=== PATIENT | male | born 1995 | race Hispanic/Latino ===

== ENCOUNTER 2019-12-26 01:38 | Emergency (ER) | payer OTHER ==
[2019-12-26] MEDS ORDERED: IBUPROFEN 400 MG TAB ONE (03:07)
--- NOTE | 2019-12-26 05:13 | ER ---
Nurse's Notes [facility] Name: Tyrone Zhou Jr Age: 24 yrs Sex: Male : 1995 Arrival Date: 12/26/2019 Time: 01:38 Bed 26 Private MD: Diagnosis: Concussion without loss of consciousness;Contusion of unspecified part of head Presentation: 12/25 01:53 Chief complaint: Parent and/or Guardian states: He was in the shower and fell. He hit jb4 his head, neck, left arm and hip. Coronavirus screen: Proceed with normal triage. Ebola Screen: No symptoms or risks identified at this time. Initial Sepsis Screen: Does the patient meet any 2 criteria? HR > 90 bpm. Yes Does the patient have a suspected source of infection? No. Patient's initial sepsis screen is negative. Risk Assessment: Do you want to hurt yourself or someone else? Patient reports no desire to harm self or others. Onset of symptoms was December 26, 2019. Transition of care: patient was not received from another setting of care. 01:53 Method Of Arrival: Ambulatory jb4 01:53 Acuity: CISCO 2 jb4 02:00 Care prior to arrival: None. Mechanism of Injury: Fall from standing position. Trauma jb4 event details: Injury occurred in the [facility]. Triage Assessment: 02:00 General: Appears in no apparent distress. comfortable, Behavior is calm, cooperative, jb4 appropriate for age. Pain: Complains of pain in base of the skull, left arm and left hip Pain does not radiate. Pain currently is 8 out of 10 on a pain scale. Quality of pain is described as throbbing. EENT: No signs and/or symptoms were reported regarding the EENT system. Neuro: Level of Consciousness is awake, alert, obeys commands, Oriented to person, place, time, situation. Cardiovascular: Patient's skin is warm and dry. Respiratory: Airway is patent Respiratory effort is even, unlabored, Respiratory pattern is regular, symmetrical. GI: No signs and/or symptoms were reported involving the gastrointestinal system. : No signs and/or symptoms were reported regarding the genitourinary system. Derm: Skin is intact, Skin is pink, warm \T\ dry. Musculoskeletal: Circulation, motion, and sensation intact. Range of motion: intact in all extremities. Trauma Activation: Alert Physician: ED Physician; Name: Noemy; Notified At: 02:00; Arrived At: 02:00 Physician: General Surgeon; Name: ; Notified At: 02:00; Arrived At: Physician: Radiology; Name: Vidal; Notified At: 02:00; Arrived At: 02:00 Physician: Respiratory; Name: ; Notified At: 02:00; Arrived At: Physician: Lab; Name: ; Notified At: 02:00; Arrived At: Historical: - Allergies: 01:55 Vancomycin; jb4 - Home Meds: 01:55 testosterone transdermal transdermal [Active]; Synthroid 137 mcg Oral tab 1 tab once jb4 daily [Active]; metformin 1,000 mg Oral tab 1 tab 2 times per day [Active]; enalapril maleate 20 mg Oral tab 1 tab 2 times per day [Active]; pioglitazone 15 mg oral tab [Active]; - PMHx: 01:55 MR; Diabetes - IDDM; fatty liver; Hypothyroidism; Low testosterone; Leukemia; jb4 - PSHx: 01:55 liver biopsy; Bone Marrow Transplant; jb4 - Immunization history:: Adult Immunizations up to date. - Social history:: Smoking status: Patient denies any tobacco usage or history of. Patient/guardian denies using alcohol, street drugs. - Immunization history: Last tetanus immunization: - up to date. Screenin:00 Abuse screen: Denies threats or abuse. Nutritional screening: No deficits noted. jb4 Tuberculosis screening: No symptoms or risk factors identified. Fall Risk None identified. Primary Survey: 02:00 NO uncontrolled hemorrhage observed. A: The patient is alert. Airway: patent, No jb4 supplemental oxygen in use on arrival. Breathing/Chest: Respiratory pattern: regular, Respiratory effort: spontaneous, unlabored, Chest inspection: symmetrical rise and fall of the chest. Circulation: Skin color: pink, Skin temperature: warm, dry. Disability Alert. Exposure/Environment: All clothing and personal items were removed. Forensic evidence collection is not deemed to be indicated at this time. Items placed in patient belonging bag. A warming method has been applied: A warm blanket has been provided to the patient. 03:00 Reassessment Airway Airway Patent Oxygen No O2 Breathing/Chest Respiratory pattern jb4 Regular Respiratory effort Spontaneous Unlabored Chest inspection Symmetrical Circulation Color [place] Temperature Warm Dry Disability Alert. Secondary Survey: 02:00 HEENT: No deficits noted. Gastrointestinal: No deficits noted. : No signs and/or jb4 symptoms were reported regarding the genitourinary system. Musculoskeletal: Circulation, motion, and sensation intact. Range of motion: intact in all extremities. Assessment: 03:00 Reassessment: Patient appears in no apparent distress at this time. Patient and/or jb4 family updated on plan of care and expected duration. Pain level reassessed. Patient is alert, oriented x 3, equal unlabored respirations, skin warm/dry/pink. 04:00 Reassessment: Patient appears in no apparent distress at this time. Patient and/or jb4 family updated on plan of care and expected duration. Pain level reassessed. Patient is alert, oriented x 3, equal unlabored respirations, skin warm/dry/pink. 05:00 Reassessment: Patient appears in no apparent distress at this time. Patient and/or jb4 family updated on plan of care and expected duration. Pain level reassessed. Patient is alert, oriented x 3, equal unlabored respirations, skin warm/dry/pink. 05:40 Reassessment: Patient appears in no apparent distress at this time. Patient and/or jb4 family updated on plan of care and expected duration. Pain level reassessed. Patient is alert, oriented x 3, equal unlabored respirations, skin warm/dry/pink. Pt and mother verbalized understanding of d/c and follow up instructions. Denies questions or concerns. Pt ambulated out of ED with mother with steady gait. Patient states feeling better. Vital Signs: 01:53 BP 119 / 77; Pulse 93; Resp 16; Temp 97.6(O); Pulse Ox 100% on R/A; Weight 63.5 kg (R); jb4 Height 5 ft. 8 in. (172.72 cm) (R); Pain 8/10; 03:00 BP 107 / 68; Pulse 96; Resp 16; Pulse Ox 100% on R/A; jb4 04:00 BP 122 / 76; Pulse 102; Resp 16; Pulse Ox 100% on R/A; jb4 05:00 BP 112 / 68; Pulse 91; Resp 16; Pulse Ox 99% on R/A; jb4 01:53 Body Mass Index 21.29 (63.50 kg, 172.72 cm) jb4 [place] Coma Score: 02:00 Eye Response: spontaneous(4). Verbal Response: oriented(5). Motor Response: obeys jb4 commands(6). Total: 15. 03:00 Eye Response: spontaneous(4). Verbal Response: oriented(5). Motor Response: obeys jb4 commands(6). Total: 15. 04:00 Eye Response: spontaneous(4). Verbal Response: oriented(5). Motor Response: obeys jb4 commands(6). Total: 15. 05:00 Eye Response: spontaneous(4). Verbal Response: oriented(5). Motor Response: obeys jb4 commands(6). Total: 15. Trauma Score (Adult): 02:00 Eye Response: spontaneous(1); Verbal Response: oriented(1); Motor Response: obeys jb4 commands(2); Systolic BP: > 89 mm Hg(4); Respiratory Rate: 10 to 29 per min(4); Maria D Score: 15; Trauma Score: 12 03:00 Eye Response: spontaneous(1); Verbal Response: oriented(1); Motor Response: obeys jb4 commands(2); Systolic BP: > 89 mm Hg(4); Respiratory Rate: 10 to 29 per min(4); [place] Score: 15; Trauma Score: 12 04:00 Eye Response: spontaneous(1); Verbal Response: oriented(1); Motor Response: obeys jb4 commands(2); Systolic BP: > 89 mm Hg(4); Respiratory Rate: 10 to 29 per min(4); [place] Score: 15; Trauma Score: 12 05:00 Eye Response: spontaneous(1); Verbal Response: oriented(1); Motor Response: obeys jb4 commands(2); Systolic BP: > 89 mm Hg(4); Respiratory Rate: 10 to 29 per min(4); Maria D Score: 15; Trauma Score: 12 ED Course: 01:38 Patient arrived in ED. ds1 01:44 Sebastian Desouza, RN is Primary Nurse. jb4 01:55 Arm band placed on right wrist. jb4 01:58 Triage completed. jb4 02:00 Patient has correct armband on for positive identification. Placed in gown. Bed in low jb4 position. Call light in reach. Side rails up X 1. Pulse ox on. NIBP on. 02:00 Patient maintains SpO2 saturation greater than 95% on room air. Thermoregulation: warm jb4 blanket given to patient. 02:01 Marck Salguero MD is Attending Physician. tw4 03:26 CT Head C Spine In Process Unspecified. EDID 05:40 No provider procedures requiring assistance completed. Patient did not have IV access jb4 during this emergency room visit. Administered Medications: 03:04 Drug: Motrin 800 mg Route: PO; jb4 Intake: 05:40 PO: 0ml; Total: 0ml. jb4 Output: 05:40 Urine: 0ml; Total: 0ml. jb4 Outcome: 05:12 Discharge ordered by . tw4 05:12 Patient's length of stay in the Emergency Department was greater than 2 hours. D/c jb4 Pending test results.Patient's length of stay extended due to 05:40 Patient left the ED. jb4 05:40 Discharged to home ambulatory, with family. jb4 05:40 Condition: stable 05:40 Discharge instructions given to patient, family, Instructed on discharge instructions, follow up and referral plans. Demonstrated understanding of instructions, follow-up care. Signatures: Dispatcher [employer] [facility] GarzaFlaquita beaver ds1 Sebastian Desouza, RN RN jb4 Marck Salguero MD MD tw4
--- NOTE | 2019-12-26 05:13 | EDPHYS ---
Physician Documentation [facility] Name: Tyrone Zhou Jr Age: 24 yrs Sex: Male : 1995 Arrival Date: 12/26/2019 Time: 01:38 Bed 26 Private MD: ED Physician Marck Salguero HPI: 12/25 05:12 This 24 yrs old Male presents to ER via Ambulatory with complaints of Fall tw4 Injury. 05:12 Details of fall: The patient fell from an upright position, while standing. Onset: The tw4 symptoms/episode began/occurred today. Associated injuries: The patient sustained injury to the head. Severity of symptoms: At their worst the symptoms were moderate, in the emergency department the symptoms are unchanged. The patient has not experienced similar symptoms in the past. Historical: - Allergies: 01:55 Vancomycin; jb4 - Home Meds: 01:55 testosterone transdermal transdermal [Active]; Synthroid 137 mcg Oral tab 1 tab once jb4 daily [Active]; metformin 1,000 mg Oral tab 1 tab 2 times per day [Active]; enalapril maleate 20 mg Oral tab 1 tab 2 times per day [Active]; pioglitazone 15 mg oral tab [Active]; - PMHx: 01:55 MR; Diabetes - IDDM; fatty liver; Hypothyroidism; Low testosterone; Leukemia; jb4 - PSHx: :55 liver biopsy; Bone Marrow Transplant; jb4 - Immunization history:: Adult Immunizations up to date. - Social history:: Smoking status: Patient denies any tobacco usage or history of. Patient/guardian denies using alcohol, street drugs. - Immunization history: Last tetanus immunization: - up to date. ROS: 05:12 Constitutional: Negative for fever, chills, and weight loss, Eyes: Negative for injury, tw4 pain, redness, and discharge, Cardiovascular: Negative for chest pain, palpitations, and edema, Respiratory: Negative for shortness of breath, cough, wheezing, and pleuritic chest pain, Abdomen/GI: Negative for abdominal pain, nausea, vomiting, diarrhea, and constipation, Back: Negative for injury and pain. Vital Signs: 01:53 BP 119 / 77; Pulse 93; Resp 16; Temp 97.6(O); Pulse Ox 100% on R/A; Weight 63.5 kg (R); jb4 Height 5 ft. 8 in. (172.72 cm) (R); Pain 8/10; 03:00 BP 107 / 68; Pulse 96; Resp 16; Pulse Ox 100% on R/A; jb4 04:00 BP 122 / 76; Pulse 102; Resp 16; Pulse Ox 100% on R/A; jb4 05:00 BP 112 / 68; Pulse 91; Resp 16; Pulse Ox 99% on R/A; jb4 01:53 Body Mass Index 21.29 (63.50 kg, 172.72 cm) jb4 [place] Coma Score: 02:00 Eye Response: spontaneous(4). Verbal Response: oriented(5). Motor Response: obeys jb4 commands(6). Total: 15. 03:00 Eye Response: spontaneous(4). Verbal Response: oriented(5). Motor Response: obeys jb4 commands(6). Total: 15. 04:00 Eye Response: spontaneous(4). Verbal Response: oriented(5). Motor Response: obeys jb4 commands(6). Total: 15. 05:00 Eye Response: spontaneous(4). Verbal Response: oriented(5). Motor Response: obeys jb4 commands(6). Total: 15. Trauma Score (Adult): 02:00 Eye Response: spontaneous(1); Verbal Response: oriented(1); Motor Response: obeys jb4 commands(2); Systolic BP: > 89 mm Hg(4); Respiratory Rate: 10 to 29 per min(4); [place] Score: 15; Trauma Score: 12 03:00 Eye Response: spontaneous(1); Verbal Response: oriented(1); Motor Response: obeys jb4 commands(2); Systolic BP: > 89 mm Hg(4); Respiratory Rate: 10 to 29 per min(4); [place] Score: 15; Trauma Score: 12 04:00 Eye Response: spontaneous(1); Verbal Response: oriented(1); Motor Response: obeys jb4 commands(2); Systolic BP: > 89 mm Hg(4); Respiratory Rate: 10 to 29 per min(4); Maria D Score: 15; Trauma Score: 12 05:00 Eye Response: spontaneous(1); Verbal Response: oriented(1); Motor Response: obeys jb4 commands(2); Systolic BP: > 89 mm Hg(4); Respiratory Rate: 10 to 29 per min(4); [place] Score: 15; Trauma Score: 12 MDM: 02:01 Patient medically screened. tw4 12/25 01:57 Order name: CT Head C Spine jmm Administered Medications: 03:04 Drug: Motrin 800 mg Route: PO; jb4 Disposition: 12/26/19 05:12 Discharged to Home. Impression: Concussion without loss of consciousness, Contusion of unspecified part of head. - Condition is Stable. - Discharge Instructions: Contusion, Head Injury, Adult, [id number]. - Medication Reconciliation Form, Thank You Letter, Antibiotic Education, Prescription Opioid Use form. - Follow up: Private Physician; When: Upon discharge from the Emergency Department; Reason: Recheck today's complaints, Continuance of care, Re-evaluation by your physician. - Problem is new. - Symptoms have improved. Signatures: Dispatcher [employer] EDMS Sebastian Desouza RN RN jb4 Marck Salguero MD MD tw4 Corrections: (The following items were deleted from the chart) 05:40 05:12 12/26/2019 05:12 Discharged to Home. Impression: Concussion without loss of jb4 consciousness; Contusion of unspecified part of head. Condition is Stable. Forms are Medication Reconciliation Form, Thank You Letter, Antibiotic Education, Prescription Opioid Use. Follow up: Private Physician; When: Upon discharge from the Emergency Department; Reason: Recheck today's complaints, Continuance of care, Re-evaluation by your physician. Problem is new. Symptoms have improved. tw4
[2019-12-26 05:50] VITALS: TEMP 97.6; O2SAT 100
[2019-12-26 05:52] VITALS: BP 122/76
--- NOTE | 2019-12-26 11:30 | RAD REPORT ---
EXAM DESCRIPTION: CT - [id number] - 12/26/2019 6:53 am CLINICAL HISTORY: Fall. Head and neck pain. Dizziness. COMPARISON: None available TECHNIQUE: Axial CT of the head obtained from the skull apex to the skull base without contrast. Axi al CT images of the cervical spine obtained from the skull base through the thoracic inlet. Sagittal and coronal reformatted images available. FINDINGS: CT head: No acute intracranial hemorrhage identified. No mass, mass effect, shift of the midline, abnormal ext ra-axial fluid collection or CT evidence of acute ischemic change identified. The ventricular system is unremarkable. No acute abnormalities of the supratentorial white matter, basal ganglia, cerebell um, or brainstem. Polypoid mucosal thickening of the right maxillary sinus. No skull fracture identified. Visualized orbits and globes are unremarkable. Cervical CT: Alignment of the cervical spine is maintained without evidence of subluxation. The atlantoaxial, at lantodental, and occipitoatlantal intervals are preserved. No fracture identified. Vertebral body h eight preserved. Prevertebral soft tissues are unremarkable. Intervertebral disc height preserved. Visualized skull base is intact. No fracture of the visualized facial bones. Visualized mastoid air c ells and paranasal sinuses are well aerated. Visualized thyroid is unremarkable. No cervical lymphadenopathy. No pneumothorax in the visualized lung apices. IMPRESSION: 1. No acute intracranial abnormality. 2. No acute fracture or subluxation of the cervical spine. This exam was performed according to our departmental dose-optimization program, which includes autom ated exposure control, adjustment of the mA and/or kV according to patient size and/or use of iterati ve reconstruction technique. Electronically signed by: Tobin Mcnamara 12/26/2019 3:37 AM CDT Due to temporary technical issues with the PACS/Fluency reporting system, reports are being signed by the in house radiologist as a courtesy to ensure prompt reporting. The interpreting radiologist is f ully responsible for the content of the report.
== END 2019-12-26 05:40 | disposition home or self-care (01) ==
LOC: ER 01:38
DX: S06.0X0A Concussion without loss of consciousness, initial encounter (principal); W19.XXXA Unspecified fall, initial encounter; Y93.9 Activity, unspecified; Y92.9 Unspecified place or not applicable; E11.9 Type 2 diabetes mellitus without complications; E03.9 Hypothyroidism, unspecified; Z85.6 Personal history of leukemia; Z88.3 Allergy status to other anti-infective agents
CPT/HCPCS: 70450; 72125; 99284

== ENCOUNTER 2021-04-06 15:08 | Emergency (ER) | payer OTHER ==
[2021-04-06 17:23] LABS: Absolute Lymphocytes (CBC) 2.3 K/uL (0.7-4.9); Basophils % 0.5 % (0-1.3); Hematocrit 40.3 % (39.6-49.0); Lymphocytes % 28.2 % (15.3-44.8); MPV 8.1 fL (7.6-11.3); RBC Red Blood Cell Count 4.63 M/uL (4.33-5.43)
[2021-04-06 17:45] LABS: ALT/SGPT 152 U/L (12-78); AST/SGOT 67 U/L (15-37); Albumin 3.5 g/dL (3.4-5.0); Alkaline Phosphatase 126 U/L (45-117); BUN Blood Urea Nitrogen 11 mg/dL (7-18); Bicarbonate 27 mmol/L (21-32); Bilirubin Direct 0.1 mg/dL (0-0.2); Bilirubin Total 0.3 mg/dL (0.2-1.0); Glucose Level 160 mg/dL (74-106); Lipase 138 U/L (73-393); Magnesium 1.8 mg/dL (1.8-2.4); Potassium 4.5 mmol/L (3.5-5.1); Protein, Total 7.9 g/dL (6.4-8.2); Sodium Level 138 mmol/L (136-145)
--- NOTE | 2021-04-06 18:20 | RAD REPORT ---
EXAM DESCRIPTION: RAD - Chest Pa And Lat (2 Views) - 04/06/2021 5:45 pm CLINICAL HISTORY: COUGH COMPARISON: None TECHNIQUE: Frontal and lateral views of the chest were obtained. FINDINGS: The lungs are clear. Heart size is normal and central vasculature is within normal limit s. No pleural effusion or pneumothorax seen. No acute bony finding noted. No aortic abnormality. IMPRESSION: No acute cardiopulmonary process.
--- NOTE | 2021-04-06 18:39 | RAD REPORT ---
EXAM DESCRIPTION: CT - Head Brain Wo Cont - 04/06/2021 6:27 pm CLINICAL HISTORY: numbness of hand;Dizziness COMPARISON: No comparisons TECHNIQUE: Axial 5 mm thick images of the head were obtained without IV contrast. All CT scans are performed using dose optimization technique as appropriate and may include automated exposure control or mA/KV adjustment according to patient size. FINDINGS: No intracranial hemorrhage, mass, edema or shift of mid-line structures. No acute infarcti on changes seen. No abnormal extra-axial fluid collections. Ventricles are normal. Mastoid air cells are clear. Trace amount of fluid layering in right-sided sphenoid sinus with trace ethmoid air cell mucosal thickening and trace mucosal thickening along the floor of each maxillary si nus. No acute bony findings. IMPRESSION: No intracranial abnormality identifiable. Trace air-fluid level in the right sphenoid sinus with scattered minimal mucosal thickening in the ma xillary sinuses and ethmoid air cells.
--- NOTE | 2021-04-06 19:01 | ER ---
Nurse's Notes [facility] Name: Tyrone Zhou Jr Age: 25 yrs Sex: Male : 1995 Arrival Date: 04/06/2021 Time: 15:10 Bed Treatment Private MD: Diagnosis: Headache;Paresthesia of skin-right hand;Acute bronchitis, unspecified Presentation: 04/06 15:35 Chief complaint: Parent and/or Guardian states: Friday he called and told me he didn't tw2 feel good. Friday we went to [facility] and is ALL survivor. he c/o sore throat and cant talk. he has been monitoring himself and checking his sugar. he is c/o a cough and almost throwing up. lots of head aches. Coronavirus screen: congestion, cough unrelated to allergies, difficulty breathing, headache, nausea, runny nose, loss of taste or smell, Client presents with at least one sign or symptom that may indicate coronavirus-19. Standard/surgical mask placed on the client. Provider contacted for isolation considerations. Ebola Screen: Patient denies travel to an Ebola-affected area in the 21 days before illness onset. Initial Sepsis Screen: Does the patient meet any 2 criteria? HR > 90 bpm. Does the patient have a suspected source of infection? No. Patient's initial sepsis screen is negative. Risk Assessment: Do you want to hurt yourself or someone else? Patient reports no desire to harm self or others. Onset of symptoms was April 06, 2021. 15:35 Method Of Arrival: Ambulatory tw2 15:35 Acuity: CISCO 3 tw2 Triage Assessment: 15:38 Headache History: The patient has had previous headaches. General: Appears ill, tw2 Behavior is quiet. General: Appears Behavior is hx of MR. Pain: Complains of pain in uvula, left aspect of posterior pharynx and right aspect of posterior pharynx Pain. Neuro: Level of Consciousness is awake, alert, obeys commands. 18:31 Pain: Pain began gradually, Also complains of no other associated symptoms. tr6 Historical: - Allergies: 15:38 Vancomycin; tw2 - Home Meds: 15:38 Synthroid 137 mcg Oral tab 1 tab once daily [Active]; testosterone transdermal tw2 [Active]; pioglitazone 15 mg Oral tab [Active]; metformin 1,000 mg Oral tab 1 tab 2 times per day [Active]; enalapril maleate 20 mg Oral tab 1 tab 2 times per day [Active]; - PMHx: 15:38 Diabetes - IDDM; fatty liver; Hypothyroidism; Leukemia; low testosterone; tw2 15:40 MR; 3rd grade level \T\ graduation; tw2 - Immunization history:: Client reports receiving the 1st dose of the Covid vaccine, February 2021. - Social history:: Smoking status: Patient denies any tobacco usage or history of. Screenin:35 Abuse screen: Denies threats or abuse. Nutritional screening: No deficits noted. tw2 Tuberculosis screening: No symptoms or risk factors identified. Fall Risk None identified. Assessment: 17:10 General: Appears in no apparent distress. Behavior is calm, cooperative, appropriate tr6 for age. Pain: Complains of pain in mouth and right aspect of posterior pharynx and left aspect of posterior pharynx and uvula. Neuro: No deficits noted. Cardiovascular: No deficits noted. Respiratory: No deficits noted. GI: No deficits noted. : No deficits noted. EENT: No deficits noted. Derm: No deficits noted. Musculoskeletal: No deficits noted. 18:30 Reassessment: pt returned from CT. tr6 Vital Signs: 15:35 BP 103 / 63; Pulse 95; Resp 17; Temp 97.9(TE); Pulse Ox 100% on R/A; Weight 63.5 kg (R);tw2 ED Course: 15:10 Patient arrived in ED. mr 15:38 Triage completed. tw2 15:40 Arm band placed on. tw2 16:36 Jessica Monge, DAREN is Primary Nurse. tr6 16:37 James Hernandez PA is PHCP. cp 16:37 James Aguilar MD is Attending Physician. cp 17:10 Inserted saline lock: 18 gauge in right antecubital area, using aseptic technique. tr6 Blood collected. 17:10 No provider procedures requiring assistance completed. tr6 17:44 XRAY Chest Pa And Lat (2 Views) In Process Unspecified. EDMS 18:27 CT Head Brain wo Cont In Process Unspecified. EDMS 18:31 Patient has correct armband on for positive identification. Bed in low position. Call tr6 light in reach. 19:28 IV discontinued, intact, bleeding controlled, No redness/swelling at site. Pressure tr6 dressing applied. Administered Medications: No medications were administered Outcome: 19:01 Discharge ordered by . cp 19:27 Discharged to home ambulatory. tr6 19:27 Condition: good 19:27 Discharge instructions given to patient, mother Instructed on discharge instructions, follow up and referral plans. medication usage, safety practices, Demonstrated understanding of instructions, follow-up care, medications, Prescriptions given X 4. 19:28 Patient left the ED. tr6 Signatures: Dispatcher [employer] Jaimie Soares mr James Hernandez PA PA cp Wise, Tara, RN RN tw2 Jessica Monge RN RN tr6 Corrections: (The following items were deleted from the chart) 15:40 15:38 PMHx: ; philip2 tw2
--- NOTE | 2021-04-06 19:01 | EDPHYS ---
Physician Documentation [facility] Name: Tyrone Zhou Jr Age: 25 yrs Sex: Male : 1995 Arrival Date: 04/06/2021 Time: 15:10 Bed Treatment Private MD: ED Physician James Aguilar HPI: 04/06 17:00 This 25 yrs old Male presents to ER via Ambulatory with complaints of cp Headache, Cough, Breathing Difficulty, Numbness Of Hand. 17:00 The patient complains of pain to the top of head and forehead. cp 17:00 The patient describes the headache as aching. cp 17:00 Onset: The symptoms/episode began/occurred 3 day(s) ago. cp 17:00 Associated signs and symptoms: Pertinent positives: sore throat, cough, nausea, cp Pertinent negatives: fever, neck stiffness, vomiting. Severity of symptoms: in the emergency department the pain is unchanged, despite home interventions. Historical: - Allergies: 15:38 Vancomycin; tw2 - Home Meds: 15:38 Synthroid 137 mcg Oral tab 1 tab once daily [Active]; testosterone transdermal tw2 [Active]; pioglitazone 15 mg Oral tab [Active]; metformin 1,000 mg Oral tab 1 tab 2 times per day [Active]; enalapril maleate 20 mg Oral tab 1 tab 2 times per day [Active]; - PMHx: 15:38 Diabetes - IDDM; fatty liver; Hypothyroidism; Leukemia; low testosterone; tw2 15:40 MR; 3rd grade level \\T\\ graduation; tw2 - Immunization history:: Client reports receiving the 1st dose of the Covid vaccine, February 2021. - Social history:: Smoking status: Patient denies any tobacco usage or history of. ROS: 17:05 Constitutional: Positive for body aches, Negative for fever. cp 17:05 Eyes: Negative for injury, pain, redness, and discharge. cp 17:05 ENT: Positive for sore throat, Negative for drainage from ear(s), ear pain, difficulty swallowing, difficulty handling secretions. 17:05 Neck: Negative for pain with movement, pain at rest, stiffness. 17:05 Cardiovascular: Negative for chest pain. 17:05 Respiratory: Positive for cough, "sounds productive", Negative for shortness of breath, wheezing. 17:05 Abdomen/GI: Positive for nausea, Negative for abdominal pain, vomiting, diarrhea, constipation. 17:05 Skin: Negative for rash. 17:05 Neuro: Positive for headache, Negative for altered mental status, numbness, weakness. 17:05 All other systems are negative. Exam: 17:10 Constitutional: The patient appears in no acute distress, alert, awake, non-toxic, well cp developed, well nourished. 17:10 Head/Face: Normocephalic, atraumatic. cp 17:10 Eyes: Periorbital structures: appear normal, Pupils: equal, round, and reactive to light and accomodation, Extraocular movements: intact throughout, Conjunctiva: normal, no exudate, no injection, Sclera: no appreciated abnormality, Lids and lashes: appear normal, bilaterally. 17:10 ENT: External ear(s): are unremarkable, Ear canal(s): are normal, clear, TM's: dullness, bilaterally, Nose: is normal, Mouth: Lips: moist, Oral mucosa: moist, Posterior pharynx: Airway: no evidence of obstruction, patent, Tonsils: no enlargement, no exudate, Uvula: midline, erythema, that is mild, exudate, is not appreciated, Voice: is normal. 17:10 Neck: ROM/movement: is normal, is supple, no meningismus, no nuchal rigidity. 17:10 Chest/axilla: Inspection: normal, Palpation: is normal, no crepitus, no tenderness. 17:10 Cardiovascular: Rate: normal, Rhythm: regular. 17:10 Respiratory: the patient does not display signs of respiratory distress, Respirations: normal, no use of accessory muscles, no retractions, labored breathing, is not present, Breath sounds: are clear throughout, no decreased breath sounds, no stridor, no wheezing. 17:10 Abdomen/GI: Inspection: abdomen appears normal, Bowel sounds: active, all quadrants, Palpation: abdomen is soft and non-tender, in all quadrants, voluntary guarding, is not appreciated, involuntary guarding, is not appreciated. 17:10 Back: pain, is absent, ROM is normal. 17:10 Skin: no rash present. 17:10 Neuro: Orientation: to person, place \\T\\ time. Mentation: is normal, Motor: moves all fours, strength is normal. Vital Signs: 15:35 BP 103 / 63; Pulse 95; Resp 17; Temp 97.9(TE); Pulse Ox 100% on R/A; Weight 63.5 kg (R);tw2 MDM: 16:44 Patient medically screened. kirstie 17:00 Differential diagnosis: migraine, otitis, sinusitis, tension headache, strep throat, cp COVID-19, influenza. 19:00 Data reviewed: vital signs, nurses notes, lab test result(s), radiologic studies, CT cp scan, plain films. 19:00 Test interpretation: by ED physician or midlevel provider: plain radiologic studies. cp Counseling: I had a detailed discussion with the patient and/or guardian regarding: the historical points, exam findings, and any diagnostic results supporting the discharge/admit diagnosis, lab results, radiology results, the need for outpatient follow up, a family practitioner, to return to the emergency department if symptoms worsen or persist or if there are any questions or concerns that arise at home. Response to treatment: the patient's symptoms have mildly improved after treatment, and as a result, I will discharge patient. 04/06 16:56 Order name: COVID-19 : Document "Date of Symptom Onset" if Symptomatic. 04/06 16:56 Order name: Basic Metabolic Panel 04/06 16:56 Order name: CBC with Diff; Complete Time: 17:44 04/06 17:44 Interpretation: Normal except: HGB 13.5. 04/06 16:56 Order name: Hepatic Function; Complete Time: 18:00 04/06 18:31 Interpretation: Normal except: AST 67; ALT 152; ALK 126; GLOB 4.4; A/G 0.8. 04/06 16:56 Order name: Lipase; Complete Time: 18:00 04/06 18:33 Interpretation: Within normal limits: LIP 138. 04/06 16:56 Order name: Ketone, Serum; Complete Time: 18:00 04/06 16:56 Order name: Influenza Screen (a \\T\\ B); Complete Time: 17:44 04/06 16:56 Order name: Strep; Complete Time: 17:44 04/06 16:56 Order name: Magnesium; Complete Time: 18:00 04/06 16:56 Order name: XRAY Chest Pa And Lat (2 Views); Complete Time: 18:31 04/06 18:31 Interpretation: Report reviewed. 04/06 16:57 Order name: Basic Metabolic Panel; Complete Time: 18:00 EDAK 04/06 18:32 Interpretation: Normal except: GLUC 160. 04/06 17:37 Order name: Throat Culture EDAK 04/06 18:23 Order name: SARS-COV-2 RT PCR; Complete Time: 18:31 EDAK 04/06 18:31 Interpretation: Results reviewed. 04/06 16:56 Order name: IV Saline Lock; Complete Time: 17:10 04/06 16:56 Order name: Labs collected and sent; Complete Time: 17:10 cp 04/06 18:01 Order name: CT Head Brain wo Cont; Complete Time: 18:48 cp 04/06 18:48 Interpretation: Report reviewed. 04/06 18:54 Order name: PO challenge; Complete Time: 19:15 cp Administered Medications: No medications were administered Disposition Summary: 04/06/21 19:01 Discharge Ordered Location: Home cp Problem: new cp Symptoms: have improved cp Condition: Stable cp Diagnosis - Headache cp - Paresthesia of skin - right hand cp - Acute bronchitis, unspecified cp Followup: cp - With: Private Physician - When: 2 - 3 days - Reason: Recheck today's complaints Discharge Instructions: - Discharge Summary Sheet cp - Acute Bronchitis, Adult cp - General Headache Without Cause cp - Paresthesia cp Forms: - Medication Reconciliation Form cp - Thank You Letter cp - Antibiotic Education cp - Prescription Opioid Use cp Prescriptions: - albuterol sulfate 90 mcg/actuation Inhalation HFA aerosol inhaler - inhale 1 puff by INHALATION route every 4-6 hours; 1 Inhaler; Refills: 0, cp Product Selection Permitted - Ibuprofen 600 mg Oral Tablet - take 1 tablet by ORAL route every 6 hours As needed take with food; 30 tablet; cp Refills: 0, Product Selection Permitted - Tessalon Perles 100 mg Oral Capsule - take 1 capsule by ORAL route every 8 hours As needed; 15 capsule; Refills: 0, cp Product Selection Permitted - Zithromax Z-Jack 250 mg Oral Tablet - take 1 tablet by ORAL route as directed for 5 days Day 1 - take two (2) tablets cp one time. Day 2, 3, 4 , 5 take one (1) tablet once daily.; 6 tablet; Refills: 0, Product Selection Permitted Addendum: 04/09/2021 06:48 Co-signature as Attending Physician, James Aguilar MD I agree with the assessment and c macias plan of care. Signatures: Dispatcher [employer] EDJames Humphreys MD MD cha Page, Corey, Lo Munguia cp, RN RN tw2 Corrections: (The following items were deleted from the chart) 04/06 15:40 15:38 PMHx: MR; tw2 tw 17:27 16:57 CORONAVIRUS ordered. [facility]
[2021-04-06 19:37] VITALS: BP 103/63; TEMP 97.9; O2SAT 100
== END 2021-04-06 19:28 | disposition home or self-care (01) ==
LOC: ER 15:08
DX: J20.9 Acute bronchitis, unspecified (principal); R51.9 Headache, unspecified; R20.2 Paresthesia of skin; Z20.822 Contact with and (suspected) exposure to COVID-19; E11.9 Type 2 diabetes mellitus without complications; Z79.4 Long term (current) use of insulin; K76.0 Fatty (change of) liver, not elsewhere classified; Z85.6 Personal history of leukemia; F79 Unspecified intellectual disabilities
CPT/HCPCS: 87070; 85025; 80048; 36415; 82010; 83735; 80076; 87081; 83690; 87804 ×2; 70450; 71046; 99284; U0003